=== PATIENT | male | born 1995 | race Two or more races ===

== ENCOUNTER 2023-06-08 15:56 | Emergency (ER) | payer MEDICAID ==
[~2023-06-08] VITALS: Ht 175.3 cm; Wt 91.0 kg
[2023-06-08 16:01] VITALS: TEMP 98.3
[2023-06-08 16:20] VITALS: BP 136/78; PULSE 91; RESP 16
[2023-06-08] MEDS ORDERED: CEPH-558 PO (16:54)
[2023-06-08] MEDS ORDERED: IBUP-1492 PO (16:54)
[2023-06-08] MEDS ORDERED: TRAM-559 PO (16:55)
[2023-06-08] MEDS: PERTUSS(ACELL),DIPH,TET VAC/PF 0.5 ML SYRINGE IM. ONE (16:58)
[2023-06-08] MEDS: IBUPROFEN 600 MG TABLET PO ONE (16:58)
[2023-06-08] MEDS: CEPHALEXIN MONOHYDRATE 500 MG CAPSULE PO ONE (16:58)
== END 2023-06-08 17:30 | disposition home or self-care (01) ==
LOC: EMS 16:00
DX: S61.412A Laceration without foreign body of left hand, initial encounter (principal); Z87.891 Personal history of nicotine dependence; W23.0XXA Caught, crushed, jammed, or pinched between moving objects, initial encounter; Y93.89 Activity, other specified; Y92.89 Other specified places as the place of occurrence of the external cause; Y99.8 Other external cause status
CPT/HCPCS: 12002; 90471; 90715; 99283